=== PATIENT | female | born 1955 | race Caucasian/White ===

== ENCOUNTER 2017-09-09 03:47 | Observation (INO) | payer SELFPAY ==
[2017-09-09] VITALS (8 sets, daily range): BP systolic 106–144; BP diastolic 59–95
[~2017-09-09] VITALS: Ht 175.3 cm; Wt 87.1 kg
[~2017-09-09 03:47] MED LIST: B-121000 MCG PO; CANAGLIFLOZIN PO; CEPHALEXIN500 MG PO; GLIPIZIDE10 MG PO; GLIPIZIDE5 MG PO; LANTUS 3ML100 UNITS/ SC; LANTUS 3ML100 UNITS/ SQ; LORAZEPAM1 MG PO; NORCO 5-325 TA1 EACH PO; POTASSIUM CHLO10 MEQ PO; SYMBICORT 16010.2 GM INH; VENTOLIN HFA18 GM INH; VITAMIN D2400 UNIT PO; Z.0.AMBIEN10 MG PO; Z.0.BENICAR20 MG PO; Z.0.CELEBREX50 MG PO; Z.0.LASIX40 MG PO; Z.0.WELLBUTRIN XL300 PO; ZOLPIDEM TARTRAT5 MG PO; [UNRECOGNIZED DRUG - OTHER] PO; [UNRECOGNIZED DRUG - OTHER] SQ; invokana PO
[2017-09-09] MEDS ORDERED: ALBUTEROL SULF 0.083% NEB SOLN 3 ML NEB NEB STA (04:01)
[2017-09-09 04:15] LABS: BASOPHILS # (AUTO) 0.1 (0.0-0.1); EOSINOPHILS # (AUTO) 0.1 (0.0-0.4); EOSINOPHILS % 1.1 % (0.0-6.0); HEMOGLOBIN 14.1 g/dL (12.0-16.0); LYMPHOCYTES # (AUTO) 2.1 (1.0-3.2); LYMPHOCYTES % 33.8 % (18.0-39.1); MEAN CORPUSCULAR HEMOGLOBIN 34.5 pg (28-32); MEAN CORPUSCULAR HGB CONC 35.3 g/dL (31-35); MEAN CORPUSCULAR VOLUME 97.8 fL (81-99); MONOCYTES # (AUTO) 0.5 (0.2-0.8); MONOCYTES % 8.4 % (4.4-11.3); NEUTROPHILS # (AUTO) 3.5 (2.1-6.9); NEUTROPHILS % 55.5 % (38.7-80.0); PLATELET COUNT 261 x10e3/uL (140-360); RED BLOOD COUNT 4.09 x10e6/uL (3.6-5.1); RED CELL DISTRIBUTION WIDTH 13.7 % (11.7-14.4)
[2017-09-09] MEDS ORDERED: SODIUM CHLORIDE 0.9% 1000ML 1,000 ML IV SCH (04:15)
[2017-09-09] MEDS ORDERED: IPRATROPIUM BROMIDE 0.02% 2.5 ML NEB NEB ONE (04:15)
[2017-09-09] MEDS ORDERED: METHYLPREDNISOLONE SOD SUCC 125 MG/2ML VIAL IV ONE (04:15)
[2017-09-09 04:18] LABS: BILIRUBIN,URINE NEGATIVE (NEGATIVE); CLARITY,URINE CLEAR (CLEAR); COLOR,URINE YELLOW (YELLOW); KETONES,URINE NEGATIVE (NEGATIVE); LEUKOCYTE ESTERASE ,URINE NEGATIVE (NEGATIVE); NITRITE,URINE NEGATIVE (NEGATIVE); PROTEIN,URINE DIPSTICK NEGATIVE (NEGATIVE); URINE UROBILINOGEN 0.2 mg/dL (0.2 - 1)
[2017-09-09 04:31] LABS: BACTERIA,URINE FEW /HPF; EPITHELIAL CELLS,URINE MODERATE /LPF; WBC,URINE (MAN) 0-5 /HPF (0-5)
[2017-09-09 04:44] LABS: ALANINE AMINOTRANSFERASE 24 IU/L (0-55); ALBUMIN 2.8 g/dL (3.5-5.0); ALKALINE PHOSPHATASE 88 IU/L (40-150); ANION GAP 14.8 mmol/L (8-16); BLOOD UREA NITROGEN 7 mg/dL (7-26); BUN/CREATININE RATIO 12 (6-25); CALCIUM 8.4 mg/dL (8.4-10.2); CARBON DIOXIDE 38 mmol/L (22-29); CHLORIDE 92 mmol/L (98-107); CREATINE KINASE 40 IU/L (29-168); CREATININE, SERUM 0.58 mg/dL (0.57-1.11); EST GLOMERULAR FILTRATION RATE > 60 ML/MIN (60-); GLUCOSE 88 mg/dL (74-118); SODIUM 142 mmol/L (136-145)
[2017-09-09 04:47] LABS: POTASSIUM 2.8 mmol/L (3.5-5.1)
[2017-09-09] MEDS ORDERED: POTASSIUM CHLORIDE 20MEQ/100ML 100 ML IV STA (04:47)
[2017-09-09] MEDS ORDERED: POTASSIUM CHLORIDE 20 MEQ TAB CR PO STA (04:47)
[2017-09-09] MEDS ORDERED: MULTIVITAMINS- 12 INJECTION 10 ML, FOLIC ACID MDV 5 MG, THIAMINE HCL INJ 100 MG in SODI... IV ONE (05:00)
--- NOTE | 2017-09-09 05:08 | Diagnostic Imaging Report ---
EXAM: CHEST SINGLE (PORTABLE), AP 1 view INDICATION: Shortness of breath, weak COMPARISON: AP view of the chest November 24, 2016 FINDINGS: LINES/TUBES: None LUNGS: No consolidations or edema. PLEURA: No effusions or pneumothorax. HEART AND MEDIASTINUM: Normal size and contour. BONES AND SOFT TISSUES: No acute findings. IMPRESSION: No acute thoracic abnormality. Signed by: Dr. Denise Weaver M.D. on 09/09/2017 5:04 AM
[2017-09-09] MEDS ORDERED: SODIUM CHLORIDE FLUSH 10 ML SYR INJ PRN (05:30)
[2017-09-09] MEDS ORDERED: AZITHROMYCIN 250 MG TAB PO SCH ×2 (05:30→10:00)
[2017-09-09] MEDS ORDERED: POTASSIUM CHLORIDE 20MEQ/15ML UDC PO ONE (05:30)
[2017-09-09] MEDS ORDERED: DEXTROSE 50% SYRINGE 50 ML IV PRN (05:30)
[2017-09-09] MEDS: INSULIN REGULAR, HUMAN 100 UNIT/1 ML 3ML VIAL SQ SCH ×4 (07:30→21:04)
[2017-09-09] MEDS: POTASSIUM CHLORIDE 20MEQ/15ML UDC PO SCH (09:20)
[2017-09-09] MEDS ORDERED: FOLIC ACID 1 MG TAB PO SCH (10:00)
[2017-09-09] MEDS ORDERED: CHLORDIAZEPOXIDE HCL 25 MG CAP PO PRN (10:00)
[2017-09-09] MEDS ORDERED: CYANOCOBALAMIN INJ 1,000 MCG/ML VIAL IM ONE (10:30)
[2017-09-09] MEDS: THIAMINE HCL 100 MG TAB PO SCH (10:53)
[2017-09-09] MEDS: FOLIC ACID 1 MG TAB PO SCH (10:53)
[2017-09-09 12:27] LABS: CREATINE KINASE MB 1.4 ng/mL (0-5.0)
[2017-09-09] MEDS: METHYLPREDNISOLONE SOD SUCC 40 MG/ML VIAL IV SCH ×2 (12:41→17:12)
[2017-09-09] MEDS: ACETAMINOPHEN 325 MG TAB PO PRN ×2 (13:40→19:40)
--- NOTE | 2017-09-09 14:07 | History and Physical ---
CHIEF COMPLAINT: Acute exacerbation of COPD. HISTORY OF PRESENT ILLNESS: Patient is a 62-year-old female with COPD exacerbation. The patient is also a heavy drinker but on the weekend only per patient. She came in with high alcohol level. Patient is awake, alert times 4. She has history of a hysterectomy and gastric banding. Prior to that, she did have diabetes but now diabetes has gone away since she has significant weight loss. The patient is otherwise stable. Her saturation is much improved now. She is stable. PAST MEDICAL HISTORY: Diabetes type 2 on diet control. COPD. Chronic lower back pain. Reflux. Alcoholism. PAST SURGICAL HISTORY: A hysterectomy and gastric banding. SOCIAL HISTORY: Patient is a smoker and alcohol drinker. No recreational drug use. ALLERGIES: TO NO KNOWN ALLERGY. HOME MEDICATION: Furosemide. PHYSICAL EXAMINATION: VITAL SIGNS: Temperature is 98. Blood pressure 112/79. Pulse rate 96. Respiration 18. GENERAL: The patient is not in acute distress. She is awake. HEENT: Normocephalic, atraumatic, anicteric. NECK: Supple grossly. PULMONARY: Diminished breath sounds with some rhonchi and wheezing. CARDIOVASCULAR: S1 and S2. Regular rate and rhythm. ABDOMEN: Soft and unremarkable. EXTREMITIES: No cyanosis or edema. NEUROLOGIC: No gross focal deficit. LABORATORY: Sodium is 142, potassium 3.8, chloride 92, bicarb 38, BUN is 7, creatinine 0.5. Glucose 88. WBC 6.2. Hemoglobin 14. Hematocrit 40. Platelets are 261. IMPRESSION: 1. Acute exacerbation of chronic obstructive pulmonary disease. 2. Alcoholism. 3. Hypokalemia secondary to taking furosemide. PLAN: Replace electrolytes. Nebulizer treatment. Steroids. direct service worker consultation since the patient lost her insurance coverage. The patient will need to have some assistance in getting her medication for treatment of her COPD chronically. Advised the patient to stop smoking. Stop alcohol consumption until she can control her medical problem. Job#: [id number] EV
[2017-09-09] MEDS ORDERED: PRILOSEC OTC20 MG (15:08)
[2017-09-09] MEDS: PANTOPRAZOLE SOD 40 MG TABEC PO SCH (16:47)
[2017-09-09] MEDS: ALBUTEROL/IPRATROPIUM 3 ML NEB NEB SCH ×3 (17:28→23:28)
[2017-09-09 20:06] LABS: CREATINE KINASE MB 3.4 ng/mL (0-5.0)
[2017-09-10] VITALS: BP 145/84
[2017-09-10] MEDS: METHYLPREDNISOLONE SOD SUCC 40 MG/ML VIAL IV SCH ×2 (00:13→06:08)
[2017-09-10] MEDS: ACETAMINOPHEN 325 MG TAB PO PRN (01:42)
[2017-09-10] MEDS: ALBUTEROL/IPRATROPIUM 3 ML NEB NEB SCH ×2 (03:05→07:20)
[2017-09-10 04:35] VITALS: BP 143/75
[2017-09-10 05:31] LABS: HEMATOCRIT 36.1 % (34.2-44.1); HEMOGLOBIN 12.5 g/dL (12.0-16.0); LYMPHOCYTES # (AUTO) 0.4 (1.0-3.2); LYMPHOCYTES % 6.8 % (18.0-39.1); MEAN CORPUSCULAR HEMOGLOBIN 34.3 pg (28-32); MEAN CORPUSCULAR HGB CONC 34.6 g/dL (31-35); MEAN CORPUSCULAR VOLUME 99.2 fL (81-99); MONOCYTES # (AUTO) 0.2 (0.2-0.8); MONOCYTES % 3.4 % (4.4-11.3); NEUTROPHILS % 89.3 % (38.7-80.0); PLATELET COUNT 224 x10e3/uL (140-360); RED BLOOD COUNT 3.64 x10e6/uL (3.6-5.1); RED CELL DISTRIBUTION WIDTH 13.8 % (11.7-14.4)
[2017-09-10 05:54] LABS: ANION GAP 14.3 mmol/L (8-16); BLOOD UREA NITROGEN 12 mg/dL (7-26); BUN/CREATININE RATIO 19 (6-25); CALCIUM 8.7 mg/dL (8.4-10.2); CARBON DIOXIDE 32 mmol/L (22-29); CHLORIDE 96 mmol/L (98-107); CREATINE KINASE 73 IU/L (29-168); CREATININE, SERUM 0.64 mg/dL (0.57-1.11); EST GLOMERULAR FILTRATION RATE > 60 ML/MIN (60-); GLUCOSE 192 mg/dL (74-118); POTASSIUM 3.3 mmol/L (3.5-5.1); SODIUM 139 mmol/L (136-145)
[2017-09-10 08:02] VITALS: BP 123/76
[2017-09-10] MEDS: PANTOPRAZOLE SOD 40 MG TABEC PO SCH (08:31)
[2017-09-10] MEDS: THIAMINE HCL 100 MG TAB PO SCH (08:32)
[2017-09-10] MEDS: INSULIN REGULAR, HUMAN 100 UNIT/1 ML 3ML VIAL SQ SCH (08:32)
[2017-09-10] MEDS: POTASSIUM CHLORIDE 20MEQ/15ML UDC PO SCH (08:32)
[2017-09-10] MEDS: FOLIC ACID 1 MG TAB PO SCH (08:32)
[2017-09-10] MEDS ORDERED: TRIAMCINOLONE ACET 40 MG/ML VIAL IM NR (09:45)
[2017-09-10] MEDS ORDERED: POTASSIUM CHLORIDE 10 MEQ TABCR PO NR (09:45)
--- NOTE | 2017-09-10 15:50 | Discharge Summary ---
FINAL DIAGNOSES: 1. Acute exacerbation of chronic obstructive pulmonary disease. 2. Alcoholism. 3. Electrolyte disorder correction. SUMMARY: A 52-year-old female with multiple medical problems. She did not have a chance to go see her family doctor to review her home medications. The patient came in with acute exacerbation of COPD. She is a heavy smoker. She also is an alcoholic as well. Medication given. She is doing much better. The patient is advised to see her family doctor. Will discharge the patient home today with a Medrol Dosepak, antibiotic, inhaler. Will give the patient librium as needed for alcohol craving. The patient is instructed to see her family doctor for care of her chronic medical problems. The patient is stable for discharge home today from her acute medical problem. Job#: [id number]
== END 2017-09-10 10:26 | disposition home or self-care (01) ==
LOC: ER 03:47 → ERHOLD 05:43 → IMCU 06:29
PROVIDERS: ADMIT Internal Medicine; ATTEND Internal Medicine
DX: J44.1 Chronic obstructive pulmonary disease with (acute) exacerbation (principal); E87.6 Hypokalemia; I10 Essential (primary) hypertension; E11.9 Type 2 diabetes mellitus without complications; G89.29 Other chronic pain; Z72.0 Tobacco use; E87.8 Other disorders of electrolyte and fluid balance, not elsewhere classified; F10.220 Alcohol dependence with intoxication, uncomplicated; Y90.8 Blood alcohol level of 240 mg/100 ml or more
CPT/HCPCS: 36415 ×2; 71045; 80048; 80053; 80320; 81001; 82550 ×2; 82553 ×2; 82948 ×2; 84484 ×2; 85025 ×2; 93005; 94640 ×4; 99285; G0378 ×2; J2920 ×2; J2930; J3301; J3411 ×3; J3420; J3480; J7030; S0164 ×2

== ENCOUNTER 2018-03-16 08:04 | Inpatient (IN) | payer OTHER ==
[~2018-03-16] VITALS: Ht 172.7 cm; Wt 84.9 kg
[2018-03-16] VITALS (18 sets, daily range): BP systolic 85–137; BP diastolic 59–93
[~2018-03-16 08:04] MED LIST changes: +PRILOSEC OTC20 MG
[2018-03-16] MEDS ORDERED: SODIUM CHLORIDE 0.9% 1000ML 1,000 ML IV STA ×3 (08:10→10:50)
[2018-03-16] MEDS ORDERED: IPRATROPIUM BROMIDE 0.02% 2.5 ML NEB ONE (08:29)
[2018-03-16] MEDS ORDERED: ALBUTEROL SULF 0.083% NEB SOLN 3 ML NEB NEB NR (08:30)
[2018-03-16 08:59] LABS: BASOPHILS % 0.1 % (0.0-1.0); EOSINOPHILS % 0.1 % (0.0-6.0); HEMATOCRIT 32.1 % (34.2-44.1); HEMOGLOBIN 11.2 g/dL (12.0-16.0); LYMPHOCYTES # (AUTO) 1.4 (1.0-3.2); LYMPHOCYTES % 20.1 % (18.0-39.1); MEAN CORPUSCULAR HEMOGLOBIN 34.1 pg (28-32); MEAN CORPUSCULAR HGB CONC 34.9 g/dL (31-35); MEAN CORPUSCULAR VOLUME 97.9 fL (81-99); MONOCYTES # (AUTO) 0.7 (0.2-0.8); MONOCYTES % 9.9 % (4.4-11.3); NEUTROPHILS # (AUTO) 4.9 (2.1-6.9); NEUTROPHILS % 69.5 % (38.7-80.0); PLATELET COUNT 103 x10e3/uL (140-360); RED BLOOD COUNT 3.28 x10e6/uL (3.6-5.1); RED CELL DISTRIBUTION WIDTH 14.9 % (11.7-14.4)
[2018-03-16] MEDS ORDERED: IPRATROPIUM BROMIDE 0.02% 2.5 ML NEB NEB NR (09:00)
[2018-03-16 09:20] LABS: INR 1.16; PROTHROMBIN TIME 15.8 seconds (11.9-14.5)
[2018-03-16 09:21] LABS: PARTIAL THROMBOPLASTIN TIME 30.9 seconds (23.8-35.5)
[2018-03-16 09:24] LABS: B-TYPE NATRIURETIC PEPTIDE2 97.2 pg/mL (0-100)
[2018-03-16 09:30] LABS: ALANINE AMINOTRANSFERASE 78 IU/L (0-55); ALBUMIN 3.2 g/dL (3.5-5.0); ALBUMIN/GLOBULIN RATIO 1.1 (0.8-2.0); ALKALINE PHOSPHATASE 123 IU/L (40-150); ANION GAP 28.8 mmol/L (8-16); BLOOD UREA NITROGEN 29 mg/dL (7-26); BUN/CREATININE RATIO 35 (6-25); CALCIUM 8.4 mg/dL (8.4-10.2); CARBON DIOXIDE 27 mmol/L (22-29); CHLORIDE 76 mmol/L (98-107); CREATINE KINASE 190 IU/L (29-168); CREATININE, SERUM 0.84 mg/dL (0.57-1.11); EST GLOMERULAR FILTRATION RATE > 60 ML/MIN (60-); SODIUM 129 mmol/L (136-145)
[2018-03-16 09:34] LABS: GLUCOSE 34 mg/dL (74-118); MAGNESIUM 1.1 MG/DL (1.3-2.1); POTASSIUM 2.8 mmol/L (3.5-5.1)
--- NOTE | 2018-03-16 09:35 | NUR ---
RECEIVED CRITICAL LABS. REPORTED TO NESS Worthington AND DR. KEARNS LACTIC 54 K 2.8 GLUCOSE 34 MAG 1.1
[2018-03-16 09:36] LABS: STREPTOCOCCUS GRP A ANTIGEN NEGATIVE (NEGATIVE)
[2018-03-16] MEDS ORDERED: DEXTROSE 50% SYRINGE 50 ML IV STA (09:39)
[2018-03-16 09:45] LABS: INFLUENZAE A&B ANTIGEN (RAPID) NEGATIVE (NEGATIVE)
[2018-03-16] MEDS ORDERED: POTASSIUM CHLORIDE 20 MEQ TAB CR PO NR (09:45)
[2018-03-16] MEDS ORDERED: MAGNESIUM SULFATE 2GM/50ML 50 ML IV ONE ×2 (09:45→14:00)
[2018-03-16] MEDS ORDERED: VANCOMYCIN 1GM/NS 250 ML 250 ML IV ONE ×2 (09:45→14:15)
[2018-03-16] MEDS ORDERED: CEFEPIME 2 GM/NS 0.9% 100 ML 100 ML IV SCH (09:45)
--- NOTE | 2018-03-16 09:52 | NUR ---
DR KEARNS AT BEDSIDE FOR RE-EVAL AND DISCUSSING THE CURRENT PLAN OF CARE WITH PATIENT AND FAMILY, VERBALIZED UNDERSTANDING. NO SIGNS OF ACUTE DISTRESS NOTED AT THIS TIME.
--- NOTE | 2018-03-16 10:00 | Diagnostic Imaging Report ---
EXAMINATION: CHEST SINGLE (PORTABLE) INDICATION: Cough. COMPARISON: Chest radiograph 09/09/17. FINDINGS: TUBES and LINES: None. LUNGS: Lungs are well inflated. Lungs are clear. There is no evidence of pneumonia or pulmonary edema. PLEURA: No pleural effusion or pneumothorax. HEART AND MEDIASTINUM: The cardiomediastinal silhouette is unremarkable. BONES AND SOFT TISSUES: No acute osseous lesion. Soft tissues are unremarkable. UPPER ABDOMEN: No free air under the diaphragm. IMPRESSION: No acute radiographic abnormality. Signed by: Dr. Aidan Alfredo MD on 03/16/2018 9:57 AM
--- NOTE | 2018-03-16 10:01 | NUR ---
REPORT TO NESS Worthington NEED 3 FULL RED TOPS FOR HEPATIC LABS/SEND OUT. AND NEED AMMONIA
[2018-03-16] MEDS ORDERED: METHYLPREDNISOLONE SOD SUCC 125 MG/2ML VIAL IV STA (10:11)
[2018-03-16 10:17] LABS: ACETAMINOPHEN < 3 ug/mL (10-30)
[2018-03-16 10:30] LABS: CLARITY,URINE SL CLOUDY (CLEAR); COLOR,URINE YELLOW (YELLOW); LEUKOCYTE ESTERASE ,URINE 1+ (NEGATIVE); NITRITE,URINE POSITIVE (NEGATIVE); PROTEIN,URINE DIPSTICK 2+ (NEGATIVE)
[2018-03-16 10:31] LABS: BILIRUBIN,URINE 2+ (NEGATIVE); KETONES,URINE 1+ (NEGATIVE); URINE UROBILINOGEN 1 mg/dL (0.2 - 1)
[2018-03-16 10:44] LABS: WBC,URINE (MAN) >50 /HPF (0-5)
[2018-03-16 10:47] LABS: RBC,URINE 0-5 /HPF (0-5)
[2018-03-16 10:48] LABS: BACTERIA,URINE RARE /HPF; EPITHELIAL CELLS,URINE MANY /LPF
[2018-03-16 10:49] LABS: TRANSITIONAL EPI CELLS,URINE FEW
[2018-03-16] MEDS ORDERED: DEXTROSE 50% SYRINGE 50 ML IV PRN (11:00)
[2018-03-16] MEDS: IPRATROPIUM BROMIDE 0.02% 2.5 ML NEB NEB SCH ×4 (11:00→23:10)
[2018-03-16] MEDS ORDERED: KCL 20MEQ/.9 SOD CHL 1,000 ML IV ONE (11:00)
[2018-03-16] MEDS: ALBUTEROL SULF 0.083% NEB SOLN 3 ML NEB NEB SCH ×4 (11:00→23:10)
--- NOTE | 2018-03-16 11:08 | Diagnostic Imaging Report ---
CT BRAIN WO HISTORY: Dizziness COMPARISON: Report from head CT dated 05/12/2016 (images not available at time of dictation) TECHNIQUE: Noncontrast axial scans were obtained from skull base to the vertex. Coronal and sagittal reconstructions obtained from the axial data. One or more of the following dose reduction techniques were used: Automated exposure control, adjustment of the mA and/or kV according to patient size, and/or utilization of iterative reconstruction technique. DISCUSSION: Scalp/Skull: Unremarkable. Brain sulci: Appropriate for patient's age. Ventricles: Normal in size and configuration. No hydrocephalus. Sellar/Suprasellar region: The pituitary gland is mildly enlarged, measuring up to 1.5 x 1.1 x 1.8 cm (sagittal by AP by transverse). The sella is mildly expanded. Mild left suprasellar extension abuts the cisternal left optic nerve. Extra-axial spaces: No additional masses or fluid collections. Parenchyma: Carotid siphon calcifications are present No additional masses, hemorrhage, or large vascular territory acute infarct. Dural sinuses: No abnormal densities. Skull base: Intact. Incidental findings: There is nonspecific moderate mucosal thickening in the left maxillary sinus. IMPRESSION: 1. No acute intracranial abnormalities. 2. Persistent, mildly enlarged pituitary gland may be due to underlying adenoma. Further evaluation with nonemergent pituitary protocol MRI is recommended. 3. Nonspecific moderate left maxillary sinus mucosal thickening. Signed by: Dr. Oleksandr Coffman M.D. on 03/16/2018 11:05 AM
[2018-03-16] MEDS: POTASSIUM CHLORIDE 10MEQ/100ML 100 ML IV SCH ×5 (11:10→14:19)
[2018-03-16] MEDS: AZITHROMYCIN 500MG/NS 250 ML 250 ML IV SCH (11:15)
--- NOTE | 2018-03-16 11:16 | NUR ---
NOTIFIED DR KEARNS PATIENT DECLINED PO K+, STATES SHE IS UNABLE SWALLOW LARGE PILLS. NO NEW ORDERS NOTED AT THIS TIME.
[2018-03-16] MEDS ORDERED: D5NS/KCL 20MEQ 1,000 ML IV SCH (11:30)
--- NOTE | 2018-03-16 11:41 | NUR ---
PATIENT AWAKE AND ALERT SITTING IN BED EATING LUNCH TRAY. RESP EVEN AND UNLABORED. SKIN WARM AND DRY. NO SIGNS OF ACUTE DISTRESS NOTED AT THIS TIME. DENIES ANY C/O AT THIS TIME. SPOUSE AT BEDSIDE.
--- NOTE | 2018-03-16 11:49 | NUR ---
NOTIFIED LAB TO COLLECT REPEAT LACTIC ACID.
[2018-03-16] MEDS ORDERED: LOPERAMIDE2 MG PO (12:40)
[2018-03-16] MEDS ORDERED: AMBIEN CR12.5 MG PO (12:40)
[2018-03-16 13:40] LABS: AMPHETAMINES SCREEN,URINE NEGATIVE (NEGATIVE); BENZODIAZEPINES SCREEN,URINE NEGATIVE (NEGATIVE); PHENCYCLIDINE SCREEN,URINE NEGATIVE (NEGATIVE)
[2018-03-16] MEDS ORDERED: METHYLPREDNISOLONE SOD SUCC 125 MG/2ML VIAL IV SCH (14:00)
[2018-03-16] MEDS: CEFEPIME 2 GM/NS 0.9% 100 ML 100 ML IV SCH (14:19)
[2018-03-16] MEDS: D5NS/KCL 20MEQ 1,000 ML IV SCH (14:19)
[2018-03-16 17:10] LABS: CREATINE KINASE MB 2.8 ng/mL (0-5.0)
--- NOTE | 2018-03-16 19:37 | NUR ---
PATIENT C/O PAIN TO THE LEGS WITH PAIN SCORE #8, SHE HAS NO PAIN MEDICATION ON ORDER. DR MCWILLIAMS JUST SAW THE PATIENT, HE WAS INFORMED THAT THE PATIENT C/O LEGS PAIN AND THAT SHE WILL NEED PAIN MEDICATION. NEW ORDER RECEIVED FOR TRAMADOL 50MG BY MOUTH EVERY 6HOURS NEEDED. WILL ADMINISTER THE MEDICATION ONCE THE ORDER HAS BEEN VERIFIED BY THE PHARMACIST.
[2018-03-16] MEDS: METHYLPREDNISOLONE SOD SUCC 125 MG/2ML VIAL IV SCH (20:00)
[2018-03-16] MEDS: TRAMADOL HCL 50 MG TAB PO PRN (20:01)
[2018-03-16] MEDS: NICOTINE 21 MG/EA PATCH TOP SCH (20:01)
--- NOTE | 2018-03-16 20:03 | History and Physical ---
PRIMARY CARE PHYSICIAN: None. CHIEF COMPLAINT: Generalized fatigue, runny nose, and fall. HISTORY OF PRESENT ILLNESS: This is a 62-year-old woman with a history of alcoholism, now developing worsening shortness of breath. She does have COPD. Patient also felt very weak and fatigued with weak legs, said her legs gave out on her and she did fall and hit her head on Sunday. She also had mild epigastric discomfort, which has resolved. Patient continues to smoke 1 pack of cigarette per day. She denies any recent alcohol use, but does drink liquor weekly. PAST MEDICAL HISTORY: Diabetes mellitus type 2, hypertension, cigarette use, COPD, alcoholism, electrolyte derangement. PAST SURGICAL HISTORY: Tubal ligation, hysterectomy, cholecystectomy, gastric sleeve surgery. ALLERGIES: PER ELECTRONIC MEDICAL RECORD. FAMILY/SOCIAL HISTORY: The patient is . She has 3 children. Drinks occasional alcohol, 1 pack of cigarette per day. MEDICATIONS: Per electronic medical record. REVIEW OF SYSTEMS: Denies any fever. Denies any nausea, vomiting, or diarrhea. Denies any headache or vision changes. Denies any leg pain, back pain. Denies any skin rash. PHYSICAL EXAMINATION VITAL SIGNS: Have been reviewed. GENERAL APPEARANCE: A tired-appearing, resting in bed. HEENT: Anicteric. CARDIOVASCULAR: Normal S1 and S2. LUNGS: She has reduced breath sounds throughout. No wheezing. ABDOMEN: Soft, nontender. EXTREMITIES: No edema. She does have old bruise on her knees. SKIN: Dry. PSYCHIATRIC: Flat affect. NEUROLOGIC: Alert and oriented x3. She moves all extremities. LABS: Reviewed. MEDICATIONS: Reviewed. ASSESSMENT: A 62-year-old woman. 1. Acute exacerbation of chronic obstructive pulmonary disease. 2. Diabetes mellitus type 2. 3. Alcoholism. 4. Hypertension. 5. Hypokalemia. 6. Hypoglycemia. 7. Hypomagnesemia. 8. Hyperammonemia. 9. Hyperbilirubinemia. 10. Urinary tract infection. 11. Enlarged pituitary gland. 12. Hyponatremia. 13. Fall. PLAN 1. Continue with cefepime, azithromycin, nebs, and steroids for COPD. 2. Physical therapy consultation. 3. Considering patient fall and does have some pituitary abnormality, we will obtain an MRI of the brain to further evaluate. 4. Replace electrolytes and recheck. 5. Start nicotine patch. 6. Use SCD and Pepcid for prophylaxis. 7. Follow up MRI of the brain and follow up electrolytes. Job#: [id number] SYLVESTER
[2018-03-16] MEDS ORDERED: NYSTATIN 15 GM POWDER UD BTL TOP SCH (20:45)
--- NOTE | 2018-03-16 21:12 | NUR ---
ASSISTED WITH ADLS, ABDOMINAL FOLD WASHED WITH SOAP AND WATER. BED ALARM ON, CALL LIGHT WITHIN EASY REACH, INSTRUCTED TO CALL FOR ASSISTANCE NEEDED.
[2018-03-17] VITALS (23 sets, daily range): BP systolic 87–128; BP diastolic 52–95
--- NOTE | 2018-03-17 01:37 | NUR ---
ASSISTED PATIENT TO THE BEDPAN, KEPT CLEAN AND DRY. NO RESPIRATORY DISTRESS OBSERVED, MEDICATED WITH TRAMADOL FOR PAIN TO THE LEGS. BED ALARM ON, CALL LIGHT WITHIN EASY REACH, INSTRUCTED TO CALL FOR ASSISTANCE NEEDED.
[2018-03-17] MEDS: TRAMADOL HCL 50 MG TAB PO PRN ×3 (01:41→20:40)
[2018-03-17] MEDS: ALBUTEROL SULF 0.083% NEB SOLN 3 ML NEB NEB SCH ×6 (02:40→22:40)
[2018-03-17] MEDS: IPRATROPIUM BROMIDE 0.02% 2.5 ML NEB NEB SCH ×6 (02:40→22:40)
[2018-03-17] MEDS: METHYLPREDNISOLONE SOD SUCC 125 MG/2ML VIAL IV SCH ×3 (03:15→20:39)
[2018-03-17] MEDS: CEFEPIME 2 GM/NS 0.9% 100 ML 100 ML IV SCH ×2 (03:15→14:33)
[2018-03-17 05:10] LABS: HEMATOCRIT 23.3 % (34.2-44.1); HEMOGLOBIN 8.4 g/dL (12.0-16.0); LYMPHOCYTES # (AUTO) 0.2 (1.0-3.2); LYMPHOCYTES % 7.4 % (18.0-39.1); MEAN CORPUSCULAR HGB CONC 36.1 g/dL (31-35); MEAN CORPUSCULAR VOLUME 94.3 fL (81-99); MONOCYTES # (AUTO) 0.2 (0.2-0.8); MONOCYTES % 6.8 % (4.4-11.3); NEUTROPHILS # (AUTO) 2.7 (2.1-6.9); NEUTROPHILS % 85.2 % (38.7-80.0); RED BLOOD COUNT 2.47 x10e6/uL (3.6-5.1); RED CELL DISTRIBUTION WIDTH 14.9 % (11.7-14.4)
[2018-03-17 05:20] LABS: PLATELET COUNT 43 x10e3/uL (140-360)
--- NOTE | 2018-03-17 05:31 | NUR ---
PATIENT CONDITION STABLE WITHOUT RESPIRATORY DISTRESS AND NO ACTIVE BLEEDING NOTED. H&H AND PLATELET COUNT DECREASE, ORDER TO RECOLLECT THOSE LABS. WILL NOTIFY DR MCWILLIAMS IF THE RESULT CONTINUE TO STAY ABNORMAL.
[2018-03-17 05:38] LABS: CREATINE KINASE MB 1.5 ng/mL (0-5.0)
[2018-03-17] MEDS: D5NS/KCL 20MEQ 1,000 ML IV SCH ×4 (05:50→23:28)
[2018-03-17 06:10] LABS: HEMATOCRIT 24.1 % (34.2-44.1); HEMOGLOBIN 8.7 g/dL (12.0-16.0)
[2018-03-17 06:26] LABS: ALANINE AMINOTRANSFERASE 61 IU/L (0-55); ALBUMIN 2.4 g/dL (3.5-5.0); ALBUMIN/GLOBULIN RATIO 1.1 (0.8-2.0); ALKALINE PHOSPHATASE 91 IU/L (40-150); ANION GAP 15.6 mmol/L (8-16); BLOOD UREA NITROGEN 23 mg/dL (7-26); BUN/CREATININE RATIO 34 (6-25); CALCIUM 7.2 mg/dL (8.4-10.2); CARBON DIOXIDE 29 mmol/L (22-29); CHLORIDE 89 mmol/L (98-107); CREATININE, SERUM 0.68 mg/dL (0.57-1.11); EST GLOMERULAR FILTRATION RATE > 60 ML/MIN (60-); GLUCOSE 253 mg/dL (74-118); MAGNESIUM 1.2 MG/DL (1.3-2.1); SODIUM 131 mmol/L (136-145)
[2018-03-17 06:32] LABS: POTASSIUM 2.6 mmol/L (3.5-5.1)
--- NOTE | 2018-03-17 06:42 | NUR ---
CALLED AND SPOKE WITH DR MCWILLIAMS REGARDING ALL ABNORMAL LAB RESULTS FOR THIS MORNING, NEW ORDERS RECEIVED.
[2018-03-17] MEDS ORDERED: POTASSIUM CHLORIDE 20 MEQ TAB CR PO STA (06:43)
[2018-03-17] MEDS ORDERED: MAGNESIUM SULFATE 2GM/50ML 50 ML IV ONE (06:45)
[2018-03-17] MEDS ORDERED: POTASSIUM CHLORIDE 20MEQ/100ML 200 ML IV ONE (06:45)
[2018-03-17 07:00] LABS: LYMPHOCYTES % (MANUAL) 8 % (19-48); MONOCYTES % (MANUAL) 6 % (3.4-9.0); NEUTROPHILS % (MANUAL) 86 % (40-74); PLATELET ESTIMATE MARKEDLY DECREASED; PLATELET MORPHOLOGY COMMENT NORMAL; RBC MORPHOLOGY COMMENT NORMAL
--- NOTE | 2018-03-17 07:22 | NUR ---
Called off site pharmacy, spoke with Mitch [facility] and requested that the STAT orders be verified. Per Mitch, he will verify the orders now.
--- NOTE | 2018-03-17 07:30 | NUR ---
Patient refusing SCDs
--- NOTE | 2018-03-17 07:34 | NUR ---
IM- Progress Note O/N: no events REVIEW OF SYSTEMS: Denies any fever. Denies any nausea, vomiting, or diarrhea. Denies any headache or vision changes. Denies any leg pain, back pain. Denies any skin rash. PHYSICAL EXAMINATION VITAL SIGNS: Have been reviewed. GENERAL APPEARANCE: A tired-appearing, resting in bed. HEENT: Anicteric. CARDIOVASCULAR: Normal S1 and S2. LUNGS: She has reduced breath sounds throughout. No wheezing. ABDOMEN: Soft, nontender. EXTREMITIES: No edema. She does have old bruise on her knees. SKIN: Dry. PSYCHIATRIC: Flat affect. NEUROLOGIC: Alert and oriented x3. She moves all extremities. LABS: Reviewed. MEDICATIONS: Reviewed. ASSESSMENT: A 62-year-old woman. 1. Acute exacerbation of chronic obstructive pulmonary disease. 2. Diabetes mellitus type 2. 3. Alcoholism. 4. Hypertension. 5. Hypokalemia. 6. Hypoglycemia. 7. Hypomagnesemia. 8. Hyperammonemia. 9. Hyperbilirubinemia. 10. Urinary tract infection. 11. Enlarged pituitary gland. 12. Hyponatremia. 13. Fall. PLAN 1. Continue with cefepime, azithromycin, nebs, and steroids for COPD. 2. Physical therapy consultation. 3. Considering patient fall and does have some pituitary abnormality, we will obtain an MRI of the brain to further evaluate. 4. Replace electrolytes and recheck. 5. Start nicotine patch. 6. Use SCD and Pepcid for prophylaxis. 7. Follow up MRI of the brain and follow up electrolytes. 03/17 replace and recheck joe Pink MD, PhD
[2018-03-17 08:24] LABS: CHOL/HDL RATIO 8.3 (3.0-3.6)
[2018-03-17] MEDS: AZITHROMYCIN 500MG/NS 250 ML 250 ML IV SCH (09:10)
[2018-03-17] MEDS: BENZONATATE 100 MG CAP PO PRN ×2 (09:11→23:39)
--- NOTE | 2018-03-17 09:35 | NUR ---
CM MET WITH PT IN ROOM REGARDING DC PLANS PT LIVES WITH HER AND GROWN SON IN A H IN [place] PT HAS A ROLLING WALKER PCP DR WOO PT CONCERNED THAT SHE IS TOO WEAK TO GO HOME SNF EVAL IN PROGRESS CM TO FOLLOW GAVE PT MY CARD PUT MY NAME AND NUMBER ON BOARD FOR PT TO CALL IF ANY QUESTIONS/CONCERNS
[2018-03-17 15:14] LABS: POTASSIUM 3.4 mmol/L (3.5-5.1)
--- NOTE | 2018-03-17 19:00 | NUR ---
Bedside report received from AM RN Natali. Patient received resting on her bed. Denied pain and no SOB. No respiratory distress noted. Respiration even and unlabored, Spo2 maintained 99% with RA.Bed in lower position,locked. Call bed within reach. Will continue to monitor.
[2018-03-17] MEDS: NICOTINE 21 MG/EA PATCH TOP SCH (20:39)
[2018-03-18] VITALS (11 sets, daily range): BP systolic 88–123; BP diastolic 62–77
--- NOTE | 2018-03-18 01:25 | NUR ---
Assisted patient to the bedpan, kept clean and dry. Will continue to monitor.
[2018-03-18] MEDS: IPRATROPIUM BROMIDE 0.02% 2.5 ML NEB NEB SCH ×6 (02:05→23:20)
[2018-03-18] MEDS: ALBUTEROL SULF 0.083% NEB SOLN 3 ML NEB NEB SCH ×6 (02:05→23:20)
[2018-03-18] MEDS: CEFEPIME 2 GM/NS 0.9% 100 ML 100 ML IV SCH ×2 (02:53→16:17)
[2018-03-18] MEDS: METHYLPREDNISOLONE SOD SUCC 125 MG/2ML VIAL IV SCH (02:53)
[2018-03-18 05:18] LABS: EOSINOPHILS % 0.2 % (0.0-6.0); HEMATOCRIT 23.3 % (34.2-44.1); HEMOGLOBIN 8.3 g/dL (12.0-16.0); LYMPHOCYTES # (AUTO) 0.2 (1.0-3.2); LYMPHOCYTES % 5.3 % (18.0-39.1); MEAN CORPUSCULAR HEMOGLOBIN 34.2 pg (28-32); MEAN CORPUSCULAR HGB CONC 35.6 g/dL (31-35); MEAN CORPUSCULAR VOLUME 95.9 fL (81-99); MONOCYTES # (AUTO) 0.3 (0.2-0.8); MONOCYTES % 6.3 % (4.4-11.3); NEUTROPHILS # (AUTO) 3.6 (2.1-6.9); NEUTROPHILS % 86.3 % (38.7-80.0); PLATELET COUNT 54 x10e3/uL (140-360); RED BLOOD COUNT 2.43 x10e6/uL (3.6-5.1); RED CELL DISTRIBUTION WIDTH 15.9 % (11.7-14.4)
[2018-03-18 05:39] LABS: ALANINE AMINOTRANSFERASE 74 IU/L (0-55); ALBUMIN 2.4 g/dL (3.5-5.0); ALBUMIN/GLOBULIN RATIO 1.1 (0.8-2.0); ALKALINE PHOSPHATASE 101 IU/L (40-150); ANION GAP 10.6 mmol/L (8-16); BLOOD UREA NITROGEN 24 mg/dL (7-26); BUN/CREATININE RATIO 38 (6-25); CALCIUM 7.6 mg/dL (8.4-10.2); CARBON DIOXIDE 29 mmol/L (22-29); CHLORIDE 97 mmol/L (98-107); CREATININE, SERUM 0.63 mg/dL (0.57-1.11); EST GLOMERULAR FILTRATION RATE > 60 ML/MIN (60-); GLUCOSE 237 mg/dL (74-118); MAGNESIUM 1.7 MG/DL (1.3-2.1); POTASSIUM 3.6 mmol/L (3.5-5.1); SODIUM 133 mmol/L (136-145)
[2018-03-18] MEDS: TRAMADOL HCL 50 MG TAB PO PRN ×3 (05:48→18:44)
[2018-03-18] MEDS: D5NS/KCL 20MEQ 1,000 ML IV SCH ×2 (06:30→16:09)
--- NOTE | 2018-03-18 07:13 | NUR ---
Report given to THERESE De La Cruz,walking round done.
[2018-03-18] MEDS ORDERED: DEXTROSE 50% SYRINGE 50 ML IV PRN (08:15)
[2018-03-18] MEDS: INSULIN REGULAR, HUMAN 100 UNIT/1 ML 3ML VIAL SQ SCH ×3 (08:30→21:00)
[2018-03-18] MEDS: AZITHROMYCIN 500MG/NS 250 ML 250 ML IV SCH (09:23)
[2018-03-18] MEDS: METHYLPREDNISOLONE SOD SUCC 40 MG/ML VIAL 1ML IV SCH ×2 (09:23→21:10)
[2018-03-18] MEDS ORDERED: GADOBENATE DIMEGLUMINE 1 ML IV ONE (10:29)
[2018-03-18] MEDS ORDERED: SODIUM CHLORIDE 0.9% 50ML 50 ML ONE (10:30)
[2018-03-18] MEDS: BENZONATATE 100 MG CAP PO PRN (12:00)
[2018-03-18 13:59] LABS: RBC MORPHOLOGY COMMENT NORMAL
[2018-03-18 14:00] LABS: ANISOCYTOSIS SLIGHT; HYPOCHROMASIA SLIGHT; PLATELET ESTIMATE MODERATELY DECREASED; PLATELET MORPHOLOGY COMMENT NORMAL
--- NOTE | 2018-03-18 14:19 | NUR ---
CALLED [employer] TO SEE WHOM IN NETWORK WAITING ON BENEFITS TO BE FAXED BUT IF NEED IN NETWORK THEY ARE [employer] AND [employer]. WHEN GET FAX TO DETERMINE IF PT HAS BENEFIT WILL UPDATE.
--- NOTE | 2018-03-18 14:52 | NUR ---
SOCIAL WORK INITIAL ASSESSMENT Senior Analyst Developer to bedside to discuss plan of care with patient/family. CM/SW role and care transitions discussed. Anticipated discharge plan discussed along with duration of care. CM/SW discussed patients right to make decisions in care. CM/SW work hours given. Patient lives: IN OWN HOUSE WITH Admit/Transfer: VIA ED FROM HOME POA/Emergency contact: GUMARO [phone] Current/Previous Home Health: NONE PCP/Follow-up Care: DRAGAN Current/Previous DME: [facility] Other Services: NONE Employment Status: UNEMPLOYED Areas of Concerns: STATES BC ON FILE ISNT CURRENT HAS MULTI PLAN GAVE COPY Referral Needs: SNF REFERRAL IF HAS BENEFITS Education Needs: NONE IMM/YAN given and signed (if applicable): NA Goal for discharge: UNKNOWN AT THIS TIME CM/SW left business card at the bedside with contact information. Name and number was also written on the patients whiteboard. Patient verbalized understanding of discussion. CM will follow-up with ongoing discharge and transition of care needs.
--- NOTE | 2018-03-18 16:30 | NUR ---
patient's accu check 159 given 4 units of Humulin regular insulin sq.
--- NOTE | 2018-03-18 16:33 | Diagnostic Imaging Report ---
MRI PITUITARY GLAND WOW HISTORY: Pituitary enlargement COMPARISON: Head CT 03/16/2018 TECHNIQUE: Multiplanar, multisequence MRI of the brain (including diffusion-weighted imaging) and pituitary gland was performed before and after the administration of intravenous contrast. Dynamic coronal T1 weighted images through the sella were obtained. 20 mL of MultiHance were administered. Motion artifacts obscure some details. DISCUSSION: Scalp/bone marrow: Unremarkable. Brain sulci: Mildly prominent. Ventricles: Mild compensatory dilatation. Extra-axial spaces: No masses or fluid collections. Sellar/Suprasellar region: The sella is mildly expanded. Approximately 1.1 x 1.1 x 1.5 cm slightly T2 hyperintense, hypoenhancing bilobed mass fills the sella and slightly extends into the suprasellar region. The suprasellar component may abut the cisternal left optic nerve. Normal pituitary tissue appears flattened along the bilateral lateral and inferior aspect of this mass. A 0.5 cm focus of T2 hypointensity within this mass may be due to calcification. The mass is isointense to white matter on precontrast T1-weighted images. The pituitary stalk is midline, but slightly displaced superiorly. The posterior pituitary T1 bright spot is not clearly identified. The optic chiasm is otherwise preserved. The cavernous sinuses are normal in size and enhance symmetrically. Meckel's caves are clear. The cavernous internal carotid artery flow voids are preserved. Parenchyma: Minimal T2/FLAIR hyperintense foci throughout the supratentorial white matter are likely chronic microvascular ischemic changes. Otherwise, no mass, hemorrhage, or acute vascular insults. Vessels: Normal flow voids in major arteries and veins. Craniocervical junction: Unremarkable. Incidental findings: There is a retention cyst or polyp in the left maxillary sinus. IMPRESSION: 1. No acute intracranial abnormalities. 2. 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 Cystic pituitary macroadenoma is thought to be less likely. 3. No other sellar/suprasellar abnormalities. 4. Mild generalized cerebral volume loss. Minimal supratentorial chronic microvascular ischemic change. Signed by: Dr. Oleksandr Coffman M.D. on 03/18/2018 2:18 PM
[2018-03-18] MEDS: NICOTINE 21 MG/EA PATCH TOP SCH (21:10)
[2018-03-19] MEDS: ALBUTEROL SULF 0.083% NEB SOLN 3 ML NEB NEB SCH ×6 (00:05→18:40)
[2018-03-19] MEDS: IPRATROPIUM BROMIDE 0.02% 2.5 ML NEB NEB SCH ×6 (00:05→18:40)
[2018-03-19] MEDS: TRAMADOL HCL 50 MG TAB PO PRN ×5 (00:54→22:50)
[2018-03-19] MEDS: D5NS/KCL 20MEQ 1,000 ML IV SCH ×2 (02:12→06:30)
[2018-03-19] MEDS: CEFEPIME 2 GM/NS 0.9% 100 ML 100 ML IV SCH ×2 (03:19→15:39)
[2018-03-19 04:23] VITALS: BP 94/66
--- NOTE | 2018-03-19 07:14 | NUR ---
Bedside report rec'd from ALEXANDRA Corado.
[2018-03-19] MEDS: INSULIN REGULAR, HUMAN 100 UNIT/1 ML 3ML VIAL SQ SCH ×4 (07:53→20:17)
[2018-03-19] MEDS: METHYLPREDNISOLONE SOD SUCC 40 MG/ML VIAL 1ML IV SCH ×2 (07:58→20:24)
[2018-03-19] MEDS: AZITHROMYCIN 500MG/NS 250 ML 250 ML IV SCH (07:59)
[2018-03-19 08:04] LABS: BASOPHILS % 0.3 % (0.0-1.0); HEMATOCRIT 23.9 % (34.2-44.1); HEMOGLOBIN 8.1 g/dL (12.0-16.0); LYMPHOCYTES # (AUTO) 0.5 (1.0-3.2); LYMPHOCYTES % 14.3 % (18.0-39.1); MEAN CORPUSCULAR HGB CONC 33.9 g/dL (31-35); MEAN CORPUSCULAR VOLUME 100.4 fL (81-99); MONOCYTES # (AUTO) 0.4 (0.2-0.8); MONOCYTES % 10.4 % (4.4-11.3); NEUTROPHILS # (AUTO) 2.6 (2.1-6.9); NEUTROPHILS % 72.2 % (38.7-80.0); PLATELET COUNT 55 x10e3/uL (140-360); RED BLOOD COUNT 2.38 x10e6/uL (3.6-5.1); RED CELL DISTRIBUTION WIDTH 17.1 % (11.7-14.4)
[2018-03-19] MEDS: BENZONATATE 100 MG CAP PO PRN (08:10)
--- NOTE | 2018-03-19 08:24 | NUR ---
IM- Progress Note O/N: no events REVIEW OF SYSTEMS: Denies any fever. Denies any nausea, vomiting, or diarrhea. Denies any headache or vision changes. Denies any leg pain, back pain. Denies any skin rash. PHYSICAL EXAMINATION VITAL SIGNS: Have been reviewed. GENERAL APPEARANCE: A tired-appearing, resting in bed. HEENT: Anicteric. CARDIOVASCULAR: Normal S1 and S2. LUNGS: She has reduced breath sounds throughout. No wheezing. ABDOMEN: Soft, nontender. EXTREMITIES: No edema. She does have old bruise on her knees. SKIN: Dry. PSYCHIATRIC: Flat affect. NEUROLOGIC: Alert and oriented x3. She moves all extremities. LABS: Reviewed. MEDICATIONS: Reviewed. ASSESSMENT: A 62-year-old woman. 1. Acute exacerbation of chronic obstructive pulmonary disease. 2. Hyperglycemia 3. Alcoholism. 4. Hypertension. 5. Hypokalemia. 6. Hypoglycemia. 7. Hypomagnesemia. 8. Hyperammonemia. 9. Hyperbilirubinemia. 10. Urinary tract infection. 11. Enlarged pituitary gland. 12. Hyponatremia. 13. Fall. PLAN 1. Continue with cefepime, azithromycin, nebs, and steroids for COPD. 2. Physical therapy consultation. 3. Considering patient fall and does have some pituitary abnormality, we will obtain an MRI of the brain to further evaluate. 4. Replace electrolytes and recheck. 5. Start nicotine patch. 6. Use SCD and Pepcid for prophylaxis. 7. Follow up MRI of the brain and follow up electrolytes. 03/17 replace and recheck lytes; 03/18 Hba1c 4.4, pt does Not have DM. Pt also states that she did have DM in distant past; d/c to SNF when approved. 03/19 f/u labs; Pseudomonas UTi- continue cefepime. Vipin Pink MD, PhD
[2018-03-19 08:29] LABS: ANION GAP 12.4 mmol/L (8-16); BLOOD UREA NITROGEN 23 mg/dL (7-26); BUN/CREATININE RATIO 37 (6-25); CALCIUM 7.7 mg/dL (8.4-10.2); CARBON DIOXIDE 27 mmol/L (22-29); CHLORIDE 100 mmol/L (98-107); CREATININE, SERUM 0.63 mg/dL (0.57-1.11); EST GLOMERULAR FILTRATION RATE > 60 ML/MIN (60-); GLUCOSE 193 mg/dL (74-118); POTASSIUM 4.4 mmol/L (3.5-5.1); SODIUM 135 mmol/L (136-145)
[2018-03-19 09:00] VITALS: BP 123/78
--- NOTE | 2018-03-19 12:19 | NUR ---
CALLED [phone] AND SPOKE WITH SHANIKA HE STATES SHE HAS A VERY LIMITED PLAN AND THERE ARE NO SNF OR HOME HEALTH BENEFITS. WILL LET PATIENT KNOW WHAT I HAVE HEARD FROM HER INSURANCE AND UPDATE CM.
[2018-03-19 13:04] LABS: BAND NEUTROPHILS % (MANUAL) 1 %; LYMPHOCYTES % (MANUAL) 14 % (19-48); MONOCYTES % (MANUAL) 10 % (3.4-9.0); NEUTROPHILS % (MANUAL) 75 % (40-74)
[2018-03-19 13:25] LABS: ANISOCYTOSIS SLIGHT; HYPOCHROMASIA MODERATE; PLATELET ESTIMATE ADEQUATE; PLATELET MORPHOLOGY COMMENT NORMAL; RBC MORPHOLOGY COMMENT NORMAL
[2018-03-19 15:00] VITALS: BP 115/70
[2018-03-19 16:15] VITALS: BP 123/92
[2018-03-19 16:31] VITALS: BP 123/92
--- NOTE | 2018-03-19 17:14 | NUR ---
Awaiting Med Surg bed; per Dr Pink, no indication for telemetry.
--- NOTE | 2018-03-19 19:07 | NUR ---
Bedside report to ALEXANDRA Mendez.
[2018-03-19 19:50] VITALS: BP 122/76
[2018-03-19] MEDS: NICOTINE 21 MG/EA PATCH TOP SCH (20:24)
--- NOTE | 2018-03-19 20:35 | NUR ---
GAVE REPORTS TO KEYONA RN, AND TRANSFERRED PATIENT TO RM 102. PATIENT IS STABLE, VITALS CHECKED, CARE WILL CONTINUE IN RM 102.
--- NOTE | 2018-03-19 20:40 | NUR ---
PATIENT RECEIVED FROM [facility] PER WHEELCHAIR. SHE WAS ORIGINALLY SUPPOSE TO BE TRANSFER TO RM 110 BUT GIVEN HER HISTORY OF FREQUENT FALLS, SHE WAS PLACED IN RM#102 CLOSER TO THE NURSES STATION. SKIN INTEGRITY INTACT, WITH BRUISE AND ABRASION TO THE RIGHT KNEE, AND ANOTHER BRUISE TO THE RIGHT SHOULDER. EYES ARE JAUNDICE, NO RESPIRATORY DISTRESS OBSERVED, BED ALARM ON AND CALL LIGHT WITHIN EASY REACH.
[2018-03-20] VITALS (8 sets, daily range): BP systolic 116–134; BP diastolic 56–80
--- NOTE | 2018-03-20 00:31 | NUR ---
PATIENT IS RESTING QUIETLY IN BED, NO RESPIRATORY DISTRESS OBSERVED. ASSISTED WITH ADLS, CALL LIGHT IN EASY REACH, BED ALARM ON.
[2018-03-20] MEDS: CEFEPIME 2 GM/NS 0.9% 100 ML 100 ML IV SCH ×2 (03:45→15:10)
[2018-03-20] MEDS: IPRATROPIUM BROMIDE 0.02% 2.5 ML NEB NEB SCH ×6 (04:05→23:45)
[2018-03-20] MEDS: ALBUTEROL SULF 0.083% NEB SOLN 3 ML NEB NEB SCH ×6 (04:05→23:45)
--- NOTE | 2018-03-20 04:31 | NUR ---
ASSISTED PATIENT WITH THE BEDPAN, HER URINE IS DARK ORANGE WITHOUT ODOR. BREATHING TREATMENT HAS BEEN ADMINISTERED BY RESPIRATORY THERAPIST, THE PATIENT IS STILL WHEEZING. SHE'S INSTRUCTED TO COUGH SEVERAL TIMES. BED ALARM ON, CALL LIGHT WITHIN EASY REACH. SHE C/O PAIN TO THE LEFT LEG, SHE WAS TOLD THAT THE PAIN MEDICATION IS NOT DUE YET AND THAT IT WILL BE ADMINISTER ONCE IT IS TIME.
--- NOTE | 2018-03-20 05:26 | NUR ---
IM- Progress Note O/N: no events REVIEW OF SYSTEMS: Denies any fever. Denies any nausea, vomiting, or diarrhea. Denies any headache or vision changes. Denies any leg pain, back pain. Denies any skin rash. PHYSICAL EXAMINATION VITAL SIGNS: Have been reviewed. GENERAL APPEARANCE: A tired-appearing, resting in bed. HEENT: Anicteric. CARDIOVASCULAR: Normal S1 and S2. LUNGS: She has reduced breath sounds throughout. No wheezing. ABDOMEN: Soft, nontender. EXTREMITIES: No edema. She does have old bruise on her knees. SKIN: Dry. PSYCHIATRIC: Flat affect. NEUROLOGIC: Alert and oriented x3. She moves all extremities. LABS: Reviewed. MEDICATIONS: Reviewed. ASSESSMENT: A 62-year-old woman. 1. Acute exacerbation of chronic obstructive pulmonary disease. 2. Hyperglycemia 3. Alcoholism. 4. Hypertension. 5. Hypokalemia. 6. Hypoglycemia. 7. Hypomagnesemia. 8. Hyperammonemia. 9. Hyperbilirubinemia. 10. Urinary tract infection. 11. Enlarged pituitary gland. 12. Hyponatremia. 13. Fall. PLAN 1. Continue with cefepime, azithromycin, nebs, and steroids for COPD. 2. Physical therapy consultation. 3. Considering patient fall and does have some pituitary abnormality, we will obtain an MRI of the brain to further evaluate. 4. Replace electrolytes and recheck. 5. Start nicotine patch. 6. Use SCD and Pepcid for prophylaxis. 7. Follow up MRI of the brain and follow up electrolytes. 03/17 replace and recheck lytes; 03/18 Hba1c 4.4, pt does Not have DM. Pt also states that she did have DM in distant past; d/c to SNF when approved. 03/19 f/u labs; Pseudomonas UTi- continue cefepime. 03/20 Pseudomonas and E.coli UTI- both sensitive to cefepime; snf pending; check labs Vipin Pink MD, PhD
[2018-03-20] MEDS: TRAMADOL HCL 50 MG TAB PO PRN ×3 (05:32→18:20)
[2018-03-20 06:16] LABS: HEMATOCRIT 24.4 % (34.2-44.1); LYMPHOCYTES # (AUTO) 0.7 (1.0-3.2); LYMPHOCYTES % 20.2 % (18.0-39.1); MEAN CORPUSCULAR HEMOGLOBIN 33.8 pg (28-32); MEAN CORPUSCULAR HGB CONC 32.8 g/dL (31-35); MONOCYTES # (AUTO) 0.3 (0.2-0.8); MONOCYTES % 10.2 % (4.4-11.3); NEUTROPHILS # (AUTO) 2.2 (2.1-6.9); PLATELET COUNT 53 x10e3/uL (140-360); RED BLOOD COUNT 2.37 x10e6/uL (3.6-5.1); RED CELL DISTRIBUTION WIDTH 17.2 % (11.7-14.4)
[2018-03-20 06:34] LABS: ANION GAP 10.6 mmol/L (8-16); BLOOD UREA NITROGEN 20 mg/dL (7-26); BUN/CREATININE RATIO 36 (6-25); CALCIUM 7.2 mg/dL (8.4-10.2); CARBON DIOXIDE 29 mmol/L (22-29); CHLORIDE 100 mmol/L (98-107); CREATININE, SERUM 0.55 mg/dL (0.57-1.11); EST GLOMERULAR FILTRATION RATE > 60 ML/MIN (60-); GLUCOSE 165 mg/dL (74-118); POTASSIUM 4.6 mmol/L (3.5-5.1); SODIUM 135 mmol/L (136-145)
--- NOTE | 2018-03-20 07:33 | NUR ---
Received patient and walking rounds complete. Patient sitting up in bed at this time, no signs of distress. Call light in reach, bed in lowest position, wheels locked, side rails up x2.
--- NOTE | 2018-03-20 08:10 | NUR ---
CM SPOKE WITH DR MCWILLIAMS REGARDING PLAN OF CARE THIS AM EXPLAINED TO HIM AND TO PT THAT HER INSURANCE HAS NO SNF BENEFITS AND NO HOME HEALTH BENEFITS PLAN PER DR MCWILLIAMS IS FOR PT TO WORK WITH P.T. TODAY AND [place] [facility] TOMORROW EXPLAINED THIS TO PT AND SHE AGREES TO WORK WITH P.T. TODAY, NOT USE THE BEDPAN AND TO BE UP AND MOVING MUCH POSSIBLE TODAY
[2018-03-20] MEDS: METHYLPREDNISOLONE SOD SUCC 40 MG/ML VIAL 1ML IV SCH ×2 (08:26→20:39)
[2018-03-20] MEDS: INSULIN REGULAR, HUMAN 100 UNIT/1 ML 3ML VIAL SQ SCH ×4 (08:27→20:43)
[2018-03-20] MEDS: AZITHROMYCIN 500MG/NS 250 ML 250 ML IV SCH (08:38)
--- NOTE | 2018-03-20 10:00 | NUR ---
Patient A/O X3, respirations even and unlabored on room air. Last BM 03/14/18, bowel sounds present. Patient is ambulatory with assist but severe weakness in both legs. Redness to the abdominal fold. Left wrist 20 gauge IV saline locked. Educated patient to use call light before getting up. Patient verbalized understanding. Will continue to monitor.
--- NOTE | 2018-03-20 10:11 | NUR ---
Removed IV in right forearm, catheter tip intact and pressure dressing applied.
[2018-03-20] MEDS: BENZONATATE 100 MG CAP PO PRN (11:45)
[2018-03-20] MEDS: NICOTINE 21 MG/EA PATCH TOP SCH (20:30)
[2018-03-21] VITALS: BP 136/70
[2018-03-21] MEDS: TRAMADOL HCL 50 MG TAB PO PRN ×2 (00:20→06:20)
[2018-03-21] MEDS: CEFEPIME 2 GM/NS 0.9% 100 ML 100 ML IV SCH (02:45)
--- NOTE | 2018-03-21 02:52 | NUR ---
PT RESTING IN BED WITH NO S/S OF DISTRESS.RESPIRATIONS EVEN/NON LABORED.IV TO LEFT WRIST NOTED LEAKING,CATH TIP NOTED INTACT UPON REMOVAL.NEW 22G IV STARTED TO RIGHT FA X 1 ATTEMPT.PT TOLERATED WELL.BED IN LOWEST/LOCKED POSITION.BED ALARM ON.CALL LIGHT WITHIN EASY REACH. Addendum: 03/21/18 at 0255 by Samira Gamez RN TIME FOR ABOVE NOTE 0230
[2018-03-21] MEDS: ALBUTEROL SULF 0.083% NEB SOLN 3 ML NEB NEB SCH (03:30)
[2018-03-21] MEDS: IPRATROPIUM BROMIDE 0.02% 2.5 ML NEB NEB SCH (03:30)
[2018-03-21 03:55] VITALS: BP 129/59
[2018-03-21] MEDS ORDERED: PREDNISONE20 MG PO (06:20)
[2018-03-21] MEDS ORDERED: NYAMYC15 GM TOP (06:20)
[2018-03-21] MEDS ORDERED: KEFLEX500 MG PO (06:20)
[2018-03-21] MEDS ORDERED: TESSALON PERLE100 MG PO (06:20)
[2018-03-21] MEDS ORDERED: NICODERM CQ1 EAC2 TOP (06:20)
[2018-03-21] MEDS ORDERED: MULTIVITAMINS1 EAC6 PO (06:22)
--- NOTE | 2018-03-21 06:23 | NUR ---
Discharge Summary Principal Dx: ASSESSMENT: A 62-year-old woman. 1. Acute exacerbation of chronic obstructive pulmonary disease. 2. Hyperglycemia 3. Alcoholism. 4. Hypertension. 5. Hypokalemia. 6. Hypoglycemia. 7. Hypomagnesemia. 8. Hyperammonemia. 9. Hyperbilirubinemia. 10. Urinary tract infection. 11. Enlarged pituitary gland. 12. Hyponatremia. 13. Fall. Secondary Dx: 1.HTN cc and HPI: refer to H&P Hospital course: ASSESSMENT: A 62-year-old woman. 1. Acute exacerbation of chronic obstructive pulmonary disease. 2. Hyperglycemia 3. Alcoholism. 4. Hypertension. 5. Hypokalemia. 6. Hypoglycemia. 7. Hypomagnesemia. 8. Hyperammonemia. 9. Hyperbilirubinemia. 10. Urinary tract infection. 11. Enlarged pituitary gland. 12. Hyponatremia. 13. Fall. PLAN 1. Continue with cefepime, azithromycin, nebs, and steroids for COPD. 2. Physical therapy consultation. 3. Considering patient fall and does have some pituitary abnormality, we will obtain an MRI of the brain to further evaluate. 4. Replace electrolytes and recheck. 5. Start nicotine patch. 6. Use SCD and Pepcid for prophylaxis. 7. Follow up MRI of the brain and follow up electrolytes. 03/17 replace and recheck lytes; 03/18 Hba1c 4.4, pt does Not have DM. Pt also states that she did have DM in distant past; d/c to SNF when approved. 03/19 f/u labs; Pseudomonas UTi- continue cefepime. 03/20 Pseudomonas and E.coli UTI- both sensitive to cefepime; snf pending; check labs d/c home d/c time>35mins f/u 1 week condition: improved d/c meds; see NYASIA Pink MD, PhD
--- NOTE | 2018-03-21 06:51 | NUR ---
REPORT GIVEN TO ONCOMING NURSE,WALKING ROUNDS MADE.PT RESTING IN BED WITH NO S/S OF DISTRESS.
--- NOTE | 2018-03-21 07:17 | NUR ---
Received patient and walking rounds complete. Patient sitting up in bed at this time, no signs of distress. Bed in lowest position, wheels locked, side rails up x2, call light in reach.
[2018-03-21 07:39] VITALS: BP 141/63
[2018-03-21] MEDS: AZITHROMYCIN 500MG/NS 250 ML 250 ML IV SCH (08:07)
[2018-03-21] MEDS: INSULIN REGULAR, HUMAN 100 UNIT/1 ML 3ML VIAL SQ SCH (08:07)
[2018-03-21] MEDS: METHYLPREDNISOLONE SOD SUCC 40 MG/ML VIAL 1ML IV SCH (08:07)
[2018-03-21] MEDS ORDERED: GABAPENTIN100 MG PO (08:25)
--- NOTE | 2018-03-21 08:39 | NUR ---
Removed patients IV, catheter tip intact and pressure dressing applied.
[2018-03-21 08:49] VITALS: BP 141/63
--- NOTE | 2018-03-21 08:51 | NUR ---
Patient discharged from facility. Left unit in wheelchair and left from facility via private auto. Patient gathered all personal belongings. Discharge instructions, follow up information, prescriptions given to patient. No signs of distress when leaving facility.
== END 2018-03-21 08:42 | disposition home or self-care (01) | DRG 191 ==
LOC: ER 08:04 → ERHOLD 11:08 → IMCU 12:56 → MED/SURG 03-19 21:25
PROVIDERS: ADMIT Internal Medicine; ATTEND Internal Medicine
DX: J44.1 Chronic obstructive pulmonary disease with (acute) exacerbation (principal); E72.20 Disorder of urea cycle metabolism, unspecified; N39.0 Urinary tract infection, site not specified; E87.1 Hypo-osmolality and hyponatremia; D61.818 Other pancytopenia; Z79.4 Long term (current) use of insulin; F10.20 Alcohol dependence, uncomplicated; I10 Essential (primary) hypertension; E87.6 Hypokalemia; E11.65 Type 2 diabetes mellitus with hyperglycemia; E83.42 Hypomagnesemia; R59.0 Localized enlarged lymph nodes; W19.XXXA Unspecified fall, initial encounter; E86.0 Dehydration; E80.6 Other disorders of bilirubin metabolism; B96.5 Pseudomonas (aeruginosa) (mallei) (pseudomallei) as the cause of diseases classified elsewhere
CPT/HCPCS: 36415; 70450; 70553; 71045; 80048; 80053; 80061; 80307; 80320; 80329; 81001; 82140; 82550; 82553; 82948; 83036; 83518; 83605; 83735; 83880; 84132; 84484; 85014; 85018; 85025; 85049; 85610; 85730; 87040; 87070; 87086; 87186; 87400; 93005; 94640; 96360; 96367; 96376; 99284; J0456; J2920; J2930; J3370; J3475; J3480; J7030; J7799

== ENCOUNTER 2018-03-21 15:28 | Emergency (ER) | payer OTHER ==
[~2018-03-21] VITALS: Ht 172.7 cm; Wt 84.8 kg
[~2018-03-21 15:28] MED LIST changes: +AMBIEN CR12.5 MG PO; +GABAPENTIN100 MG PO; +KEFLEX500 MG PO; +LOPERAMIDE2 MG PO; +MULTIVITAMINS1 EAC6 PO; +NICODERM CQ1 EAC2 TOP; +NYAMYC15 GM TOP; +PREDNISONE20 MG PO; +TESSALON PERLE100 MG PO
--- NOTE | 2018-03-21 15:54 | NUR ---
PT D/C PER DR WRIGHT AFTER BEING D/C EARLIER THIS MORNING; PER DR WRIGHT PT CONDITION DOES NOT WARRANT ED TREATMENT AND PT TO BE D/C HOME; PT TO CONTACT FOR RIDE HOME; PT STATES SHE UNDERSTANDS
[2018-03-21 16:24] VITALS: BP 114/97
== END 2018-03-21 16:45 | disposition left against medical advice (07) ==
LOC: ER 15:28
DX: Z03.89 Encounter for observation for other suspected diseases and conditions ruled out (principal)